=== PATIENT | female | born 1955 | race Hispanic/Latino ===

== ENCOUNTER 2022-02-12 20:45 | Inpatient (IN) | payer OTHER ==
[~2022-02-12] VITALS: Ht 152.4 cm; Wt 73.3 kg
[2022-02-12] MEDS ORDERED: MORPHINE 4 MG SYG ONE (21:12)
[2022-02-12] MEDS ORDERED: ONDANSETRON 4MG INJ ONE (21:12)
[2022-02-12 21:26] LABS: BASOPHILS % (AUTO) 0.2 % (0.0-5.0); EOSINOPHILS % (AUTO) 0.4 % (0.0-8.0); HEMATOCRIT 48.4 % (36-48); LYMPHOCYTES % (AUTO) 13.7 % (21.0-51.0); MEAN CORPUSCULAR HEMOGLOBIN 30.9 pg (27.0-33.0); MEAN CORPUSCULAR HGB CONC 33.5 g/dL (32.0-36.0); MEAN CORPUSCULAR VOLUME 92.2 fL (79-99); MONOCYTES % (AUTO) 3.9 % (3.0-13.0); NEUTROPHILS % (AUTO) 81.2 % (40.0-77.0); PLATELET COUNT (AUTO) 407 K/uL (130-400); RED BLOOD CELL COUNT(AUTO) 5.25 MIL/uL (4.00-5.50); RED CELL DISTRIBUTION WIDTH 12.9 % (11.0-15.5); WHITE BLOOD COUNT (AUTO) 24.8 K/uL (4.8-10.8)
[2022-02-12] MEDS ORDERED: MORPHINE 4 MG SYG IVP ONE (21:30)
[2022-02-12] MEDS ORDERED: ONDANSETRON 4MG INJ IVP ONE (21:30)
[2022-02-12 21:35] LABS: CREATININE 1.1 mg/dL (0.5-1.5); POTASSIUM 3.2 mmol/L (3.5-5.1)
[2022-02-12 21:40] LABS: ALBUMIN 4.1 g/dL (3.5-5.0); TOTAL PROTEIN, SERUM 7.8 g/dL (6.0-8.3)
[2022-02-12] MEDS ORDERED: ZOSYN 3.375GM +NS 50ML IV SCH (22:00)
[2022-02-12] MEDS ORDERED: HYDROMORPHONE 0.5 MG SYG (0.5MG/0.5ML) ONE (22:08)
[2022-02-12] MEDS ORDERED: 0.9%NACL 1000ML 1,365 ML IV ONE (22:30)
[2022-02-12] MEDS ORDERED: HYDROMORPHONE 0.5 MG SYG (0.5MG/0.5ML) IVP ONE ×2 (22:30)
[2022-02-12] MEDS: ZOSYN 3.375GM +NS 50ML IV SCH (22:58)
[2022-02-12] MEDS: DEXTROSE 5 %-0.45 % NACL 1,000 ML IV SCH (23:37)
[2022-02-12 23:47] LABS: CHOLESTEROL 281 mg/dL (<200); HDL CHOLESTEROL 45 mg/dL (35-85); LDL DIRECT 181 mg/dL (0-99); TRIGLYCERIDES 163 mg/dL (30-200)
[2022-02-13] VITALS (7 sets, daily range): BP systolic 123–164; BP diastolic 76–92
[2022-02-13] MEDS: HYDROMORPHONE 0.5 MG SYG (0.5MG/0.5ML) IVP PRN ×6 (00:52→21:10)
[2022-02-13] MEDS: ONDANSETRON 4MG INJ IVP PRN ×2 (02:19→05:48)
[2022-02-13] MEDS: LIDOCAINE HCL-MPF 1% 2ML VIAL IV PRN (02:20)
[2022-02-13] MEDS: POTASSIUM CHLORIDE 20MEQ/100ML 100 ML IV PRN (02:21)
[2022-02-13] MEDS ORDERED: [UNRECOGNIZED DRUG - OTHER] IV ONE (03:00)
[2022-02-13] MEDS ORDERED: PHARMACY COMMUNICATION MISC SCH (03:00)
[2022-02-13] MEDS ORDERED: 0.9%NACL 1000ML 1,365 ML IV ONE (03:00)
[2022-02-13] MEDS: DEXTROSE 5 %-0.45 % NACL 1,000 ML IV SCH ×2 (05:10→15:20)
[2022-02-13] MEDS: ZOSYN 3.375GM +NS 50ML IV SCH ×3 (05:41→23:22)
[2022-02-13 06:24] LABS: BASOPHILS % (AUTO) 0.1 % (0.0-5.0); HEMATOCRIT 43.9 % (36-48); LYMPHOCYTES % (AUTO) 6.2 % (21.0-51.0); MEAN CORPUSCULAR HEMOGLOBIN 31.1 pg (27.0-33.0); MEAN CORPUSCULAR HGB CONC 33.5 g/dL (32.0-36.0); MEAN CORPUSCULAR VOLUME 92.8 fL (79-99); MONOCYTES % (AUTO) 5.2 % (3.0-13.0); NEUTROPHILS % (AUTO) 88.2 % (40.0-77.0); PLATELET COUNT (AUTO) 245 K/uL (130-400); RED BLOOD CELL COUNT(AUTO) 4.73 MIL/uL (4.00-5.50); RED CELL DISTRIBUTION WIDTH 13.2 % (11.0-15.5); WHITE BLOOD COUNT (AUTO) 11.9 K/uL (4.8-10.8)
[2022-02-13 06:42] LABS: CREATININE 0.9 mg/dL (0.5-1.5); POTASSIUM 4.3 mmol/L (3.5-5.1); TOTAL PROTEIN, SERUM 6.5 g/dL (6.0-8.3)
[2022-02-13] MEDS ORDERED: GLUCAGON 1MG KIT 1 MG ML IM PRN (07:00)
[2022-02-13] MEDS ORDERED: DEXTROSE 50%-WATER 50 ML DISP.SYRIN IV PRN (07:00)
[2022-02-13] MEDS: INSULIN HUMULIN R 100 UNIT/ML 3ML SQ SCH ×4 (07:43→20:58)
[2022-02-13] MEDS: PANTOPRAZOLE 40 MG/VIAL IVP SCH (09:57)
[2022-02-13] MEDS ORDERED: PNEUMOCOCCAL VACCINE POLYVALENT 0.5 ML/VIAL [PPV] IM ONE (10:00)
[2022-02-13] MEDS: KETOROLAC 30MG VIAL (30MG/ML) IVP PRN ×2 (10:03→18:01)
[2022-02-13] MEDS: 0.9%NACL 1000ML 1,000 ML IV SCH (16:58)
[2022-02-13] MEDS: METOPROLOL TARTRATE 25 MG TAB PO SCH ×2 (16:58→20:59)
[2022-02-14] MEDS: 0.9%NACL 1000ML 1,000 ML IV SCH ×4 (02:33→21:57)
[2022-02-14] MEDS: KETOROLAC 30MG VIAL (30MG/ML) IVP PRN ×2 (02:56→09:00)
[2022-02-14 04:32] VITALS: BP 141/74
[2022-02-14] MEDS: INSULIN HUMULIN R 100 UNIT/ML 3ML SQ SCH ×4 (06:12→21:41)
[2022-02-14] MEDS: ZOSYN 3.375GM +NS 50ML IV SCH ×3 (06:37→21:40)
[2022-02-14] MEDS: HYDROMORPHONE 0.5 MG SYG (0.5MG/0.5ML) IVP PRN ×3 (07:12→21:40)
[2022-02-14 08:00] VITALS: BP 131/59
[2022-02-14] MEDS: PANTOPRAZOLE 40 MG/VIAL IVP SCH (09:00)
[2022-02-14] MEDS: METOPROLOL TARTRATE 25 MG TAB PO SCH ×2 (09:00→21:40)
[2022-02-14 12:00] VITALS: BP 115/62
[2022-02-14] MEDS: FLUTICASONE/VILANTEROL 1 EACH AER.POW.BA IH SCH (13:01)
[2022-02-14 16:00] VITALS: BP 109/52
[2022-02-14 20:52] VITALS: BP 139/56
[2022-02-14 23:15] VITALS: BP 117/65
[2022-02-15] MEDS: ONDANSETRON 4MG INJ IVP PRN (03:07)
[2022-02-15 04:30] VITALS: BP 126/64
[2022-02-15 05:13] LABS: BASOPHILS % (AUTO) 0.2 % (0.0-5.0); EOSINOPHILS % (AUTO) 0.1 % (0.0-8.0); HEMATOCRIT 36.4 % (36-48); LYMPHOCYTES % (AUTO) 9.1 % (21.0-51.0); MEAN CORPUSCULAR HEMOGLOBIN 30.5 pg (27.0-33.0); MEAN CORPUSCULAR HGB CONC 32.7 g/dL (32.0-36.0); MEAN CORPUSCULAR VOLUME 93.3 fL (79-99); MONOCYTES % (AUTO) 3.7 % (3.0-13.0); NEUTROPHILS % (AUTO) 86.1 % (40.0-77.0); PLATELET COUNT (AUTO) 205 K/uL (130-400); RED CELL DISTRIBUTION WIDTH 13.5 % (11.0-15.5); WHITE BLOOD COUNT (AUTO) 16.7 K/uL (4.8-10.8)
[2022-02-15 05:21] LABS: HEMOGLOBIN A1C 6.6 % (4.0-6.0)
[2022-02-15 05:32] LABS: ALBUMIN 2.3 g/dL (3.5-5.0); CREATININE 0.8 mg/dL (0.5-1.5); MAGNESIUM 2.1 mg/dL (1.80-2.40); POTASSIUM 3.4 mmol/L (3.5-5.1); TOTAL PROTEIN, SERUM 5.9 g/dL (6.0-8.3)
[2022-02-15] MEDS: ZOSYN 3.375GM +NS 50ML IV SCH ×3 (05:48→19:59)
[2022-02-15] MEDS: POTASSIUM CHLORIDE 20MEQ/100ML 100 ML IV PRN (05:48)
[2022-02-15] MEDS: HYDROMORPHONE 0.5 MG SYG (0.5MG/0.5ML) IVP PRN ×3 (06:05→15:33)
[2022-02-15] MEDS: INSULIN HUMULIN R 100 UNIT/ML 3ML SQ SCH ×4 (07:30→21:00)
[2022-02-15 08:00] VITALS: BP 111/57
[2022-02-15] MEDS: MONTELUKAST SODIUM 10 MG TAB PO SCH (09:52)
[2022-02-15] MEDS: METOPROLOL TARTRATE 25 MG TAB PO SCH ×2 (09:52→19:59)
[2022-02-15] MEDS: 0.9%NACL 1000ML 1,000 ML IV SCH ×2 (09:52→17:00)
[2022-02-15] MEDS: FLUTICASONE/VILANTEROL 1 EACH AER.POW.BA IH SCH (09:52)
[2022-02-15] MEDS: PANTOPRAZOLE 40 MG/VIAL IVP SCH (09:52)
[2022-02-15 12:00] VITALS: BP 111/62
[2022-02-15 16:00] VITALS: BP 121/66
[2022-02-15] MEDS: KETOROLAC 30MG VIAL (30MG/ML) IVP PRN (19:59)
[2022-02-15 20:00] VITALS: BP 149/75
[2022-02-16] VITALS: BP 142/76
[2022-02-16] MEDS: 0.9%NACL 1000ML 1,000 ML IV SCH (00:44)
[2022-02-16] MEDS: HYDROMORPHONE 0.5 MG SYG (0.5MG/0.5ML) IVP PRN ×5 (00:44→21:28)
[2022-02-16 04:00] VITALS: BP 130/72
[2022-02-16] MEDS: ZOSYN 3.375GM +NS 50ML IV SCH ×3 (04:38→22:42)
[2022-02-16 04:47] LABS: BASOPHILS % (AUTO) 0.3 % (0.0-5.0); HEMATOCRIT 31.5 % (36-48); LYMPHOCYTES % (AUTO) 11.7 % (21.0-51.0); MEAN CORPUSCULAR HEMOGLOBIN 31.1 pg (27.0-33.0); MEAN CORPUSCULAR HGB CONC 33.7 g/dL (32.0-36.0); MEAN CORPUSCULAR VOLUME 92.4 fL (79-99); MONOCYTES % (AUTO) 5.8 % (3.0-13.0); NEUTROPHILS % (AUTO) 80.4 % (40.0-77.0); PLATELET COUNT (AUTO) 177 K/uL (130-400); RED BLOOD CELL COUNT(AUTO) 3.41 MIL/uL (4.00-5.50); RED CELL DISTRIBUTION WIDTH 13.3 % (11.0-15.5); WHITE BLOOD COUNT (AUTO) 14.4 K/uL (4.8-10.8)
[2022-02-16] MEDS: INSULIN HUMULIN R 100 UNIT/ML 3ML SQ SCH ×4 (06:18→21:00)
[2022-02-16 07:15] VITALS: BP 119/63
[2022-02-16] MEDS: METOPROLOL TARTRATE 25 MG TAB PO SCH ×2 (09:20→20:08)
[2022-02-16] MEDS: PANTOPRAZOLE 40 MG/VIAL IVP SCH (09:20)
[2022-02-16] MEDS: MONTELUKAST SODIUM 10 MG TAB PO SCH (09:20)
[2022-02-16] MEDS: FLUTICASONE/VILANTEROL 1 EACH AER.POW.BA IH SCH (09:27)
[2022-02-16] MEDS: ONDANSETRON 4MG INJ IVP PRN (09:29)
[2022-02-16 11:15] VITALS: BP 124/64
[2022-02-16] MEDS: KETOROLAC 30MG VIAL (30MG/ML) IVP PRN (14:50)
[2022-02-16 15:15] VITALS: BP 124/61
[2022-02-16] MEDS ORDERED: IOHEXOL 350 MG/ML 100ML INFUS..BTL IV ONE (15:43)
[2022-02-16] MEDS: DEXTROSE 5 %-0.45 % NACL 1,000 ML IV SCH (16:43)
[2022-02-16] MEDS: POTASSIUM CHLORIDE 20MEQ/100ML 100 ML IV PRN (19:24)
[2022-02-16] MEDS: DOCUSATE SODIUM 100 MG CAP PO SCH (19:31)
[2022-02-16] MEDS: SENNOSIDES 8.6 MG TABLET PO SCH (19:31)
[2022-02-16 20:00] VITALS: BP 137/68
[2022-02-16] MEDS: METOPROLOL TARTRATE 1 MG/ML 5ML VIAL IV PRN (20:09)
[2022-02-17] VITALS (7 sets, daily range): BP systolic 117–153; BP diastolic 56–71
[2022-02-17] MEDS: KETOROLAC 30MG VIAL (30MG/ML) IVP PRN ×3 (00:29→16:30)
[2022-02-17] MEDS: HYDROMORPHONE 0.5 MG SYG (0.5MG/0.5ML) IVP PRN ×5 (01:07→21:01)
[2022-02-17] MEDS ORDERED: HYDROMORPHONE 0.5 MG SYG (0.5MG/0.5ML) IVP ONE (04:00)
[2022-02-17 04:27] LABS: BASOPHILS % (AUTO) 0.3 % (0.0-5.0); EOSINOPHILS % (AUTO) 1.1 % (0.0-8.0); HEMATOCRIT 28.4 % (36-48); LYMPHOCYTES % (AUTO) 10.3 % (21.0-51.0); MEAN CORPUSCULAR HEMOGLOBIN 31.2 pg (27.0-33.0); MEAN CORPUSCULAR HGB CONC 34.2 g/dL (32.0-36.0); MEAN CORPUSCULAR VOLUME 91.3 fL (79-99); MONOCYTES % (AUTO) 6.6 % (3.0-13.0); NUCLEATED RED BLOOD CELLS 0.4 % (0.0-0.19); PLATELET COUNT (AUTO) 198 K/uL (130-400); RED BLOOD CELL COUNT(AUTO) 3.11 MIL/uL (4.00-5.50); RED CELL DISTRIBUTION WIDTH 13.1 % (11.0-15.5); WHITE BLOOD COUNT (AUTO) 15.4 K/uL (4.8-10.8)
[2022-02-17 04:43] LABS: ALBUMIN 1.8 g/dL (3.5-5.0); CREATININE 0.6 mg/dL (0.5-1.5); MAGNESIUM 1.9 mg/dL (1.80-2.40); TOTAL PROTEIN, SERUM 5.6 g/dL (6.0-8.3)
[2022-02-17 04:49] LABS: CRP QUANTITATIVE 351.4 mg/L (0.00-9.0)
[2022-02-17 04:50] LABS: POTASSIUM 2.7 mmol/L (3.5-5.1)
[2022-02-17] MEDS: POTASSIUM CHLORIDE 20MEQ/100ML 100 ML IV PRN ×2 (05:03→09:33)
[2022-02-17] MEDS: LIDOCAINE HCL-MPF 1% 2ML VIAL IV PRN ×2 (05:03→09:34)
[2022-02-17] MEDS: ZOSYN 3.375GM +NS 50ML IV SCH ×3 (05:38→22:28)
[2022-02-17] MEDS: INSULIN HUMULIN R 100 UNIT/ML 3ML SQ SCH ×4 (05:58→20:21)
[2022-02-17] MEDS: DOCUSATE SODIUM 100 MG CAP PO SCH ×2 (09:00→19:44)
[2022-02-17] MEDS: MONTELUKAST SODIUM 10 MG TAB PO SCH ×2 (09:00→09:30)
[2022-02-17] MEDS: METOPROLOL TARTRATE 25 MG TAB PO SCH ×2 (09:00→19:44)
[2022-02-17] MEDS: SENNOSIDES 8.6 MG TABLET PO SCH ×2 (09:00→19:44)
[2022-02-17] MEDS: PANTOPRAZOLE 40 MG/VIAL IVP SCH (09:19)
[2022-02-17] MEDS: METOPROLOL TARTRATE 1 MG/ML 5ML VIAL IV PRN (09:21)
[2022-02-17] MEDS: ONDANSETRON 4MG INJ IVP PRN (09:26)
[2022-02-17] MEDS: FLUTICASONE/VILANTEROL 1 EACH AER.POW.BA IH SCH (09:35)
[2022-02-17] MEDS: DEXTROSE 5 %-0.45 % NACL 1,000 ML IV SCH (13:20)
[2022-02-18] MEDS: KETOROLAC 30MG VIAL (30MG/ML) IVP PRN (01:09)
[2022-02-18] MEDS ORDERED: HYDROMORPHONE 0.5 MG SYG (0.5MG/0.5ML) ONE (03:00)
[2022-02-18 04:51] VITALS: BP 124/67
[2022-02-18] MEDS: ZOSYN 3.375GM +NS 50ML IV SCH ×3 (05:45→22:19)
[2022-02-18] MEDS: INSULIN HUMULIN R 100 UNIT/ML 3ML SQ SCH ×3 (06:06→20:32)
[2022-02-18 08:00] VITALS: BP 146/70
[2022-02-18] MEDS: SENNOSIDES 8.6 MG TABLET PO SCH ×2 (08:36→20:41)
[2022-02-18] MEDS: DOCUSATE SODIUM 100 MG CAP PO SCH ×2 (08:36→20:40)
[2022-02-18] MEDS: METOPROLOL TARTRATE 25 MG TAB PO SCH ×2 (08:36→20:40)
[2022-02-18] MEDS: MONTELUKAST SODIUM 10 MG TAB PO SCH (08:37)
[2022-02-18 08:49] LABS: BASOPHILS % (AUTO) 0.4 % (0.0-5.0); EOSINOPHILS % (AUTO) 1.2 % (0.0-8.0); HEMATOCRIT 31.1 % (36-48); LYMPHOCYTES % (AUTO) 7.3 % (21.0-51.0); MEAN CORPUSCULAR HEMOGLOBIN 30.8 pg (27.0-33.0); MEAN CORPUSCULAR HGB CONC 34.4 g/dL (32.0-36.0); MEAN CORPUSCULAR VOLUME 89.6 fL (79-99); MONOCYTES % (AUTO) 7.5 % (3.0-13.0); NEUTROPHILS % (AUTO) 79.3 % (40.0-77.0); NUCLEATED RED BLOOD CELLS 0.8 % (0.0-0.19); PLATELET COUNT (AUTO) 200 K/uL (130-400); RED BLOOD CELL COUNT(AUTO) 3.47 MIL/uL (4.00-5.50); WHITE BLOOD COUNT (AUTO) 13.9 K/uL (4.8-10.8)
[2022-02-18] MEDS: HYDROMORPHONE 0.5 MG SYG (0.5MG/0.5ML) IVP PRN ×4 (09:01→23:31)
[2022-02-18] MEDS: DEXTROSE 5 %-0.45 % NACL 1,000 ML IV SCH (09:01)
[2022-02-18] MEDS: PANTOPRAZOLE 40 MG/VIAL IVP SCH (09:02)
[2022-02-18] MEDS: FLUTICASONE/VILANTEROL 1 EACH AER.POW.BA IH SCH (09:02)
[2022-02-18] MEDS: METOPROLOL TARTRATE 1 MG/ML 5ML VIAL IV PRN (09:03)
[2022-02-18 09:16] LABS: ALBUMIN 1.8 g/dL (3.5-5.0); CREATININE 0.6 mg/dL (0.5-1.5); MAGNESIUM 1.8 mg/dL (1.80-2.40)
[2022-02-18 09:23] LABS: POTASSIUM 2.5 mmol/L (3.5-5.1)
[2022-02-18 12:00] VITALS: BP 146/65
[2022-02-18] MEDS: ONDANSETRON 4MG INJ IVP PRN (12:53)
[2022-02-18 16:00] VITALS: BP 152/67
[2022-02-18] MEDS ORDERED: POTASSIUM CHLORIDE 20MEQ/10ML 20 MEQ in DEXTROSE 5 %-0.45 % NACL 1,000 ML IV SCH (16:30)
[2022-02-18 16:55] LABS: CREATININE 0.6 mg/dL (0.5-1.5); MAGNESIUM 1.8 mg/dL (1.80-2.40)
[2022-02-18 17:01] LABS: POTASSIUM 2.6 mmol/L (3.5-5.1)
[2022-02-18] MEDS ORDERED: KCL 20 MEQ ERTAB PO ONE (18:30)
[2022-02-18 20:11] VITALS: BP 146/70
[2022-02-18] MEDS ORDERED: POTASSIUM CHLORIDE 10% ELIXIR 20 MEQ/15 ML UDCUP ONE (20:36)
[2022-02-18 23:17] VITALS: BP 138/72
[2022-02-19 03:10] VITALS: BP 141/72
[2022-02-19] MEDS: ONDANSETRON 4MG INJ IVP PRN (03:12)
[2022-02-19 04:06] LABS: BASOPHILS % (AUTO) 0.5 % (0.0-5.0); EOSINOPHILS % (AUTO) 1.1 % (0.0-8.0); HEMATOCRIT 30.8 % (36-48); LYMPHOCYTES % (AUTO) 8.3 % (21.0-51.0); MEAN CORPUSCULAR HEMOGLOBIN 30.8 pg (27.0-33.0); MEAN CORPUSCULAR HGB CONC 34.7 g/dL (32.0-36.0); MEAN CORPUSCULAR VOLUME 88.8 fL (79-99); MONOCYTES % (AUTO) 7.3 % (3.0-13.0); NEUTROPHILS % (AUTO) 77.9 % (40.0-77.0); PLATELET COUNT (AUTO) 216 K/uL (130-400); RED BLOOD CELL COUNT(AUTO) 3.47 MIL/uL (4.00-5.50); RED CELL DISTRIBUTION WIDTH 12.8 % (11.0-15.5)
[2022-02-19] MEDS: HYDROMORPHONE 0.5 MG SYG (0.5MG/0.5ML) IVP PRN ×3 (04:06→19:23)
[2022-02-19 04:40] LABS: ALBUMIN 1.7 g/dL (3.5-5.0); CREATININE 0.6 mg/dL (0.5-1.5); TOTAL PROTEIN, SERUM 5.9 g/dL (6.0-8.3)
[2022-02-19 04:53] LABS: CRP QUANTITATIVE 248.3 mg/L (0.00-9.0)
[2022-02-19] MEDS ORDERED: POTASSIUM BICARB/CIT AC 25 MEQ TABLET.EFF ONE (05:01)
[2022-02-19] MEDS: ZOSYN 3.375GM +NS 50ML IV SCH ×3 (05:46→22:32)
[2022-02-19] MEDS ORDERED: POTASSIUM BICARB/CIT AC 25 MEQ TABLET.EFF PO ONE (06:00)
[2022-02-19] MEDS: INSULIN HUMULIN R 100 UNIT/ML 3ML SQ SCH ×3 (06:04→20:38)
[2022-02-19 08:22] VITALS: BP 138/67
[2022-02-19] MEDS: DOCUSATE SODIUM 100 MG CAP PO SCH (09:06)
[2022-02-19] MEDS: METOPROLOL TARTRATE 25 MG TAB PO SCH ×2 (09:06→20:36)
[2022-02-19] MEDS: SENNOSIDES 8.6 MG TABLET PO SCH (09:06)
[2022-02-19] MEDS: PANTOPRAZOLE 40 MG/VIAL IVP SCH (09:06)
[2022-02-19] MEDS: MONTELUKAST SODIUM 10 MG TAB PO SCH (09:06)
[2022-02-19] MEDS: FLUTICASONE/VILANTEROL 1 EACH AER.POW.BA IH SCH (09:16)
[2022-02-19] MEDS: 0.9%NACL 1000ML 1,000 ML IV SCH ×2 (09:37→22:32)
[2022-02-19 11:16] VITALS: BP 127/56
[2022-02-19 12:11] LABS: CREATININE 0.6 mg/dL (0.5-1.5); POTASSIUM 3.6 mmol/L (3.5-5.1)
[2022-02-19 16:26] VITALS: BP 132/67
[2022-02-19 20:00] VITALS: BP 140/68
[2022-02-20] MEDS: HYDROMORPHONE 0.5 MG SYG (0.5MG/0.5ML) IVP PRN ×2 (00:13→04:46)
[2022-02-20 00:36] VITALS: BP 139/71
[2022-02-20 03:55] VITALS: BP 136/65
[2022-02-20] MEDS: INSULIN HUMULIN R 100 UNIT/ML 3ML SQ SCH ×4 (06:02→21:36)
[2022-02-20] MEDS: ZOSYN 3.375GM +NS 50ML IV SCH (06:03)
[2022-02-20 07:30] VITALS: BP 131/67
[2022-02-20] MEDS: METOPROLOL TARTRATE 25 MG TAB PO SCH ×2 (09:14→20:26)
[2022-02-20] MEDS: PANTOPRAZOLE 40 MG/VIAL IVP SCH (09:14)
[2022-02-20] MEDS: MONTELUKAST SODIUM 10 MG TAB PO SCH (09:14)
[2022-02-20] MEDS: FLUTICASONE/VILANTEROL 1 EACH AER.POW.BA IH SCH (09:16)
[2022-02-20 11:00] VITALS: BP 135/71
[2022-02-20] MEDS: AMOXICILLIN 500 MG CAPSULE PO SCH ×2 (11:57→23:18)
[2022-02-20] MEDS: KETOROLAC 15MG/ML VIAL (15MG/ML) IV PRN ×2 (11:58→20:27)
[2022-02-20] MEDS ORDERED: TRAMADOL HCL 50 MG TABLET PO PRN (15:30)
[2022-02-20 16:00] VITALS: BP 116/71
[2022-02-20] MEDS: ONDANSETRON 4MG INJ IVP PRN (18:46)
[2022-02-20 20:00] VITALS: BP 144/68
[2022-02-20] MEDS: 0.9%NACL 1000ML 1,000 ML IV SCH (21:34)
[2022-02-21] VITALS: BP 132/67
[2022-02-21] MEDS: 0.9%NACL 1000ML 1,000 ML IV SCH (00:38)
[2022-02-21] MEDS: ONDANSETRON 4MG INJ IVP PRN (02:27)
[2022-02-21 04:00] VITALS: BP 137/74
[2022-02-21] MEDS: INSULIN HUMULIN R 100 UNIT/ML 3ML SQ SCH (05:20)
[2022-02-21] MEDS: KETOROLAC 15MG/ML VIAL (15MG/ML) IV PRN (06:21)
[2022-02-21 07:58] VITALS: BP 131/61
[2022-02-21] MEDS: METOPROLOL TARTRATE 25 MG TAB PO SCH (08:13)
[2022-02-21] MEDS: MONTELUKAST SODIUM 10 MG TAB PO SCH (08:13)
[2022-02-21] MEDS: PANTOPRAZOLE 40 MG/VIAL IVP SCH (08:13)
[2022-02-21] MEDS: AMOXICILLIN 500 MG CAPSULE PO SCH (08:13)
[2022-02-21 11:48] VITALS: BP 117/68
[2022-02-21] MEDS ORDERED: AMOX-426 PO (15:14)
== END 2022-02-21 12:30 | disposition home or self-care (01) | DRG 871 ==
LOC: EDH 20:45 → EDHIP 20:46 → 4CH 02-13 00:57
PROVIDERS: ADMIT Hospitalist; ATTEND Hospitalist
DX: A41.9 Sepsis, unspecified organism (principal); E43 Unspecified severe protein-calorie malnutrition; K85.90 Acute pancreatitis without necrosis or infection, unspecified; J18.9 Pneumonia, unspecified organism; E87.6 Hypokalemia; E66.9 Obesity, unspecified; J45.909 Unspecified asthma, uncomplicated; Z90.710 Acquired absence of both cervix and uterus; Z68.31 Body mass index [BMI] 31.0-31.9, adult
CPT/HCPCS: 36415; 71045; 74160; 74176; 80048; 80053; 80061; 82948; 83036; 83605; 83690; 83735; 84145; 84484; 85025; 86140; 87040; 90732; 93005; 97039; 99291; C9113; G0378; J1170; J1815; J1885; J2270; J2405; J2543; J3480; J3490; J7030; J7042; Q9967

== ENCOUNTER 2022-02-24 21:56 | Inpatient (IN) | payer OTHER ==
[~2022-02-24] VITALS: Ht 152.4 cm; Wt 62.6 kg
[~2022-02-24 21:56] MED LIST: AMOX-426 PO
[2022-02-24] MEDS ORDERED: KETOROLAC 15MG/ML VIAL (15MG/ML) IV ONE (22:30)
[2022-02-24] MEDS ORDERED: ONDANSETRON 4MG INJ IVP ONE (22:30)
[2022-02-24] MEDS ORDERED: MORPHINE 4 MG SYG IVP ONE (22:30)
[2022-02-24] MEDS ORDERED: 0.9%NACL 1000ML 1,000 ML IV ONE (22:30)
[2022-02-24 22:36] LABS: BASOPHILS % (AUTO) 0.4 % (0.0-5.0); HEMATOCRIT 34.7 % (36-48); LYMPHOCYTES % (AUTO) 10.4 % (21.0-51.0); MEAN CORPUSCULAR HEMOGLOBIN 30.6 pg (27.0-33.0); MEAN CORPUSCULAR HGB CONC 34.3 g/dL (32.0-36.0); MEAN CORPUSCULAR VOLUME 89.2 fL (79-99); MONOCYTES % (AUTO) 6.4 % (3.0-13.0); NEUTROPHILS % (AUTO) 80.6 % (40.0-77.0); RED BLOOD CELL COUNT(AUTO) 3.89 MIL/uL (4.00-5.50); RED CELL DISTRIBUTION WIDTH 13.4 % (11.0-15.5); WHITE BLOOD COUNT (AUTO) 15.7 K/uL (4.8-10.8)
[2022-02-24 22:48] LABS: CREATININE 0.6 mg/dL (0.5-1.5); POTASSIUM 3.4 mmol/L (3.5-5.1)
[2022-02-24 22:52] LABS: ALBUMIN 2.4 g/dL (3.5-5.0); TOTAL PROTEIN, SERUM 7.6 g/dL (6.0-8.3)
[2022-02-24 23:14] LABS: PLATELET COUNT (AUTO) 830 K/uL (130-400); PLATELET MORPHOLOGY COMMENT INCREASED
[2022-02-25] MEDS ORDERED: MORPHINE 2 MG SYG IVP ONE (00:30)
[2022-02-25] MEDS ORDERED: KCL 20 MEQ ERTAB PO ONE (01:00)
[2022-02-25] MEDS ORDERED: NITROGLYCERIN 0.4 MG SL TAB SL PRN (01:00)
[2022-02-25] MEDS ORDERED: ACETAMINOPHEN 325 MG TAB PO PRN ×2 (01:00)
[2022-02-25 01:09] LABS: MAGNESIUM 2.1 mg/dL (1.80-2.40)
[2022-02-25 01:10] LABS: HEMOGLOBIN A1C 7.3 % (4.0-6.0)
[2022-02-25] MEDS: LACTATED RINGERS 1000ML 1,000 ML IV SCH ×3 (01:14→19:38)
[2022-02-25] MEDS: ZOSYN 3.375GM +NS 50ML IV SCH ×3 (01:14→17:48)
[2022-02-25] MEDS ORDERED: GLUCAGON 1MG KIT 1 MG ML IM PRN (01:30)
[2022-02-25] MEDS ORDERED: DEXTROSE 50%-WATER 50 ML DISP.SYRIN IV PRN (01:30)
[2022-02-25] MEDS: FAMOTIDINE 20MG VIAL IV SCH ×3 (02:36→21:19)
[2022-02-25 03:09] LABS: ALBUMIN 2.1 g/dL (3.5-5.0); CREATININE 0.6 mg/dL (0.5-1.5); MAGNESIUM 1.9 mg/dL (1.80-2.40); POTASSIUM 3.5 mmol/L (3.5-5.1); TOTAL PROTEIN, SERUM 6.9 g/dL (6.0-8.3)
[2022-02-25 03:12] LABS: BASOPHILS % (AUTO) 0.2 % (0.0-5.0); EOSINOPHILS % (AUTO) 1.8 % (0.0-8.0); HEMATOCRIT 32.2 % (36-48); MEAN CORPUSCULAR HEMOGLOBIN 30.8 pg (27.0-33.0); MEAN CORPUSCULAR HGB CONC 33.9 g/dL (32.0-36.0); MONOCYTES % (AUTO) 6.9 % (3.0-13.0); NEUTROPHILS % (AUTO) 76.1 % (40.0-77.0); PLATELET COUNT (AUTO) 668 K/uL (130-400); RED BLOOD CELL COUNT(AUTO) 3.54 MIL/uL (4.00-5.50); RED CELL DISTRIBUTION WIDTH 13.5 % (11.0-15.5); WHITE BLOOD COUNT (AUTO) 13.6 K/uL (4.8-10.8)
[2022-02-25 04:18] LABS: APPEARANCE,URINE CLEAR (CLEAR); BILIRUBIN,URINE NEGATIVE (NEGATIVE); COLOR,URINE YELLOW (YELLOW); GLUCOSE, URINE (UA) 500 mg/dL (NEGATIVE); KETONES,URINE >=80 mg/dL (NEGATIVE); LEUKOCYTE ESTERASE ,URINE NEGATIVE (NEGATIVE); NITRATE,URINE NEGATIVE (NEGATIVE); OCCULT BLOOD,URINE NEGATIVE (NEGATIVE); PROTEIN,URINE TRACE mg/dL (NEGATIVE); UROBILINOGEN,URINE 0.2 mg/dL (0.2-1.0)
[2022-02-25 04:22] LABS: AMPHET/METH SCREEN,URINE NEGATIVE (NEGATIVE); BARBITURATE SCREEN, URINE NEGATIVE (NEGATIVE); BENZODIAZEPINES SCREEN,URINE NEGATIVE (NEGATIVE); CANNABINOID SCREEN,URINE NEGATIVE (NEGATIVE); COCAINE SCREEN,URINE NEGATIVE (NEGATIVE); PHENCYCLIDINE SCREEN,URINE NEGATIVE (NEGATIVE)
[2022-02-25 04:34] LABS: BACTERIA,URINE None Seen /HPF (None Seen); RBC,URINE None Seen /HPF (0-1); WBC,URINE None Seen /HPF (0-1)
[2022-02-25 04:35] VITALS: BP 110/68
[2022-02-25] MEDS: MORPHINE 2 MG SYG IV PRN ×3 (06:12→17:50)
[2022-02-25] MEDS: ONDANSETRON 4MG INJ IV PRN ×2 (06:12→18:08)
[2022-02-25 06:50] LABS: PROTHROMBIN TIME 10.9 SEC (9.6-11.6)
[2022-02-25 06:51] LABS: PARTIAL THROMBOPLASTIN TIME 26.5 SEC (26.3-35.5)
[2022-02-25] MEDS: INSULIN HUMULIN R 100 UNIT/ML 3ML SQ SCH ×4 (07:30→21:29)
[2022-02-25 08:00] VITALS: BP 150/79
[2022-02-25] MEDS ORDERED: FAMOTIDINE 20MG TAB PO SCH (09:00)
[2022-02-25] MEDS: ENOXAPARIN SODIUM 40 MG/0.4 ML SYRINGE SQ SCH (10:25)
[2022-02-25 12:00] VITALS: BP 120/72
[2022-02-25 16:26] VITALS: BP 148/70
[2022-02-25 20:00] VITALS: BP 142/72
[2022-02-26] VITALS (7 sets, daily range): BP systolic 127–139; BP diastolic 62–74
[2022-02-26] MEDS: ZOSYN 3.375GM +NS 50ML IV SCH ×3 (00:39→18:56)
[2022-02-26] MEDS: LACTATED RINGERS 1000ML 1,000 ML IV SCH ×3 (00:40→22:04)
[2022-02-26] MEDS: MORPHINE 2 MG SYG IV PRN ×3 (03:47→22:18)
[2022-02-26] MEDS: INSULIN HUMULIN R 100 UNIT/ML 3ML SQ SCH ×4 (06:30→21:00)
[2022-02-26 09:15] LABS: HEMATOCRIT 28.4 % (36-48); MEAN CORPUSCULAR HEMOGLOBIN 30.4 pg (27.0-33.0); MEAN CORPUSCULAR HGB CONC 33.5 g/dL (32.0-36.0); MEAN CORPUSCULAR VOLUME 90.7 fL (79-99); RED BLOOD CELL COUNT(AUTO) 3.13 MIL/uL (4.00-5.50); RED CELL DISTRIBUTION WIDTH 13.6 % (11.0-15.5); WHITE BLOOD COUNT (AUTO) 9.9 K/uL (4.8-10.8)
[2022-02-26 09:53] LABS: ALBUMIN 1.8 g/dL (3.5-5.0); CREATININE 0.5 mg/dL (0.5-1.5); POTASSIUM 3.2 mmol/L (3.5-5.1); TOTAL PROTEIN, SERUM 6.1 g/dL (6.0-8.3)
[2022-02-26] MEDS: FAMOTIDINE 20MG VIAL IV SCH ×2 (10:06→22:04)
[2022-02-26] MEDS: ENOXAPARIN SODIUM 40 MG/0.4 ML SYRINGE SQ SCH (10:07)
[2022-02-26] MEDS: ONDANSETRON 4MG INJ IV PRN ×2 (15:14→22:14)
[2022-02-27 03:38] VITALS: BP 133/70
[2022-02-27 04:35] LABS: BASOPHILS % (AUTO) 0.5 % (0.0-5.0); EOSINOPHILS % (AUTO) 2.8 % (0.0-8.0); HEMATOCRIT 29.3 % (36-48); MEAN CORPUSCULAR HEMOGLOBIN 30.1 pg (27.0-33.0); MEAN CORPUSCULAR HGB CONC 32.8 g/dL (32.0-36.0); MEAN CORPUSCULAR VOLUME 91.8 fL (79-99); MONOCYTES % (AUTO) 7.2 % (3.0-13.0); NEUTROPHILS % (AUTO) 73.8 % (40.0-77.0); PLATELET COUNT (AUTO) 594 K/uL (130-400); RED BLOOD CELL COUNT(AUTO) 3.19 MIL/uL (4.00-5.50); RED CELL DISTRIBUTION WIDTH 13.2 % (11.0-15.5); WHITE BLOOD COUNT (AUTO) 9.8 K/uL (4.8-10.8)
[2022-02-27] MEDS: LACTATED RINGERS 1000ML 1,000 ML IV SCH ×4 (04:47→20:59)
[2022-02-27] MEDS: ZOSYN 3.375GM +NS 50ML IV SCH ×3 (04:47→16:57)
[2022-02-27 04:49] LABS: CREATININE 0.5 mg/dL (0.5-1.5)
[2022-02-27] MEDS ORDERED: LIDOCAINE HCL-MPF 1% 2ML VIAL IV PRN (06:30)
[2022-02-27] MEDS: INSULIN HUMULIN R 100 UNIT/ML 3ML SQ SCH ×3 (07:03→16:30)
[2022-02-27 08:00] VITALS: BP 132/73
[2022-02-27] MEDS: FAMOTIDINE 20MG VIAL IV SCH ×2 (08:46→20:54)
[2022-02-27] MEDS: ENOXAPARIN SODIUM 40 MG/0.4 ML SYRINGE SQ SCH (08:50)
[2022-02-27 12:00] VITALS: BP 141/74
[2022-02-27] MEDS: ONDANSETRON 4MG INJ IV PRN (12:16)
[2022-02-27] MEDS ORDERED: LIDOCAINE HCL MPF 1% 5ML VIAL ONE (13:05)
[2022-02-27] MEDS: POTASSIUM CHLORIDE 20MEQ/100ML 100 ML IV PRN ×2 (13:13→20:54)
[2022-02-27 15:38] VITALS: BP 141/73
[2022-02-27 20:03] VITALS: BP 141/78
[2022-02-27] MEDS ORDERED: [UNRECOGNIZED DRUG - NUTRITION] IV SCH (20:30)
[2022-02-27] MEDS: MORPHINE 2 MG SYG IV PRN (20:58)
[2022-02-27] MEDS ORDERED: KETOROLAC 30MG VIAL (30MG/ML) ONE (23:54)
[2022-02-28] MEDS ORDERED: KETOROLAC 30MG VIAL (30MG/ML) IVP PRN
[2022-02-28 00:23] VITALS: BP 162/70
[2022-02-28] MEDS: ZOSYN 3.375GM +NS 50ML IV SCH ×3 (00:23→17:41)
[2022-02-28] MEDS: INSULIN HUMULIN R 100 UNIT/ML 3ML SQ SCH ×5 (00:24→22:36)
[2022-02-28] MEDS: MORPHINE 2 MG SYG IV PRN (04:47)
[2022-02-28] MEDS: LACTATED RINGERS 1000ML 1,000 ML IV SCH (04:47)
[2022-02-28 05:05] VITALS: BP 122/67
[2022-02-28 06:21] LABS: BASOPHILS % (AUTO) 0.5 % (0.0-5.0); EOSINOPHILS % (AUTO) 1.1 % (0.0-8.0); HEMATOCRIT 29.3 % (36-48); LYMPHOCYTES % (AUTO) 11.6 % (21.0-51.0); MEAN CORPUSCULAR HEMOGLOBIN 30.5 pg (27.0-33.0); MEAN CORPUSCULAR HGB CONC 33.8 g/dL (32.0-36.0); MEAN CORPUSCULAR VOLUME 90.2 fL (79-99); MONOCYTES % (AUTO) 5.8 % (3.0-13.0); NEUTROPHILS % (AUTO) 80.4 % (40.0-77.0); PLATELET COUNT (AUTO) 620 K/uL (130-400); RED BLOOD CELL COUNT(AUTO) 3.25 MIL/uL (4.00-5.50); RED CELL DISTRIBUTION WIDTH 13.1 % (11.0-15.5); WHITE BLOOD COUNT (AUTO) 11.4 K/uL (4.8-10.8)
[2022-02-28 06:29] LABS: INR 1.05 (0.85-1.15); PROTHROMBIN TIME 11.4 SEC (9.6-11.6)
[2022-02-28 06:30] LABS: PARTIAL THROMBOPLASTIN TIME 25.9 SEC (26.3-35.5)
[2022-02-28 06:40] LABS: ALBUMIN 1.9 g/dL (3.5-5.0); CREATININE 0.6 mg/dL (0.5-1.5); MAGNESIUM 1.6 mg/dL (1.80-2.40); POTASSIUM 3.8 mmol/L (3.5-5.1)
[2022-02-28 08:00] VITALS: BP 125/68
[2022-02-28] MEDS: FAMOTIDINE 20MG VIAL IV SCH ×2 (08:55→22:27)
[2022-02-28] MEDS: ENOXAPARIN SODIUM 40 MG/0.4 ML SYRINGE SQ SCH (09:00)
[2022-02-28 12:00] VITALS: BP 137/67
[2022-02-28] MEDS ORDERED: MAGNESIUM 2GM PREMIX 50ML 50 ML IV PRN (12:00)
[2022-02-28 16:00] VITALS: BP 136/71
[2022-02-28 20:00] VITALS: BP 123/77
[2022-03-01] VITALS (7 sets, daily range): BP systolic 120–140; BP diastolic 65–81
[2022-03-01] MEDS: MORPHINE 2 MG SYG IV PRN (00:59)
[2022-03-01] MEDS: ZOSYN 3.375GM +NS 50ML IV SCH ×3 (00:59→16:57)
[2022-03-01] MEDS: LACTATED RINGERS 1000ML 1,000 ML IV SCH ×2 (01:28→13:20)
[2022-03-01 05:55] LABS: BASOPHILS % (AUTO) 0.9 % (0.0-5.0); EOSINOPHILS % (AUTO) 2.5 % (0.0-8.0); HEMATOCRIT 34.1 % (36-48); LYMPHOCYTES % (AUTO) 13.7 % (21.0-51.0); MEAN CORPUSCULAR HEMOGLOBIN 30.3 pg (27.0-33.0); MEAN CORPUSCULAR HGB CONC 32.8 g/dL (32.0-36.0); MEAN CORPUSCULAR VOLUME 92.2 fL (79-99); NEUTROPHILS % (AUTO) 73.1 % (40.0-77.0); PLATELET COUNT (AUTO) 603 K/uL (130-400); RED CELL DISTRIBUTION WIDTH 13.2 % (11.0-15.5); WHITE BLOOD COUNT (AUTO) 9.7 K/uL (4.8-10.8)
[2022-03-01] MEDS: INSULIN HUMULIN R 100 UNIT/ML 3ML SQ SCH ×3 (06:05→18:00)
[2022-03-01 06:19] LABS: ALBUMIN 2.2 g/dL (3.5-5.0); CREATININE 0.5 mg/dL (0.5-1.5); MAGNESIUM 2.2 mg/dL (1.80-2.40); PHOSPHORUS 2.9 mg/dL (2.5-4.9); POTASSIUM 3.8 mmol/L (3.5-5.1); TOTAL PROTEIN, SERUM 6.9 g/dL (6.0-8.3)
[2022-03-01] MEDS: FAMOTIDINE 20MG VIAL IV SCH ×2 (09:41→21:45)
[2022-03-01] MEDS: ENOXAPARIN SODIUM 40 MG/0.4 ML SYRINGE SQ SCH (09:42)
[2022-03-01] MEDS ORDERED: FAT EMULSIONS 20% 250ML 250 ML IV SCH (10:00)
[2022-03-01] MEDS ORDERED: M.V.I. IV [ADULT] 10 ML, MULTITRACE-4 ADULT 10ML VIAL 3 ML in CLINIMIX-E4.25%AA/D5+LYT2... IV SCH ×2 (10:30→17:30)
[2022-03-02] MEDS: ZOSYN 3.375GM +NS 50ML IV SCH ×3 (00:21→17:32)
[2022-03-02] MEDS: INSULIN HUMULIN R 100 UNIT/ML 3ML SQ SCH ×4 (02:05→18:27)
[2022-03-02] MEDS: MORPHINE 2 MG SYG IV PRN (02:06)
[2022-03-02] MEDS: LACTATED RINGERS 1000ML 1,000 ML IV SCH (02:40)
[2022-03-02 04:23] VITALS: BP 121/72
[2022-03-02 05:33] LABS: HEMATOCRIT 34.2 % (36-48); MEAN CORPUSCULAR HEMOGLOBIN 30.2 pg (27.0-33.0); MEAN CORPUSCULAR HGB CONC 33.3 g/dL (32.0-36.0); MEAN CORPUSCULAR VOLUME 90.5 fL (79-99); RED BLOOD CELL COUNT(AUTO) 3.78 MIL/uL (4.00-5.50); RED CELL DISTRIBUTION WIDTH 13.2 % (11.0-15.5); WHITE BLOOD COUNT (AUTO) 9.6 K/uL (4.8-10.8)
[2022-03-02 05:44] LABS: CREATININE 0.7 mg/dL (0.5-1.5); POTASSIUM 4.2 mmol/L (3.5-5.1)
[2022-03-02 08:00] VITALS: BP 113/68
[2022-03-02] MEDS: FAMOTIDINE 20MG VIAL IV SCH ×2 (08:32→20:05)
[2022-03-02] MEDS: ENOXAPARIN SODIUM 40 MG/0.4 ML SYRINGE SQ SCH (08:32)
[2022-03-02] MEDS ORDERED: FAT EMULSIONS 20% 250ML 250 ML IV SCH (10:00)
[2022-03-02] MEDS ORDERED: M.V.I. IV [ADULT] 10 ML, MULTITRACE-4 ADULT 10ML VIAL 3 ML in CLINIMIX-E 5%AA /D15%W 2... IV SCH (10:30)
[2022-03-02 11:43] VITALS: BP 114/71
[2022-03-02 16:00] VITALS: BP 131/73
[2022-03-02] MEDS: ONDANSETRON 4MG INJ IV PRN (20:05)
[2022-03-02 20:33] VITALS: BP 128/68
[2022-03-03] MEDS: ZOSYN 3.375GM +NS 50ML IV SCH ×3 (00:30→17:59)
[2022-03-03] MEDS: INSULIN HUMULIN R 100 UNIT/ML 3ML SQ SCH ×4 (00:33→18:01)
[2022-03-03 00:57] VITALS: BP 111/70
[2022-03-03] MEDS: ONDANSETRON 4MG INJ IV PRN (01:10)
[2022-03-03 04:37] VITALS: BP 105/65
[2022-03-03 05:19] LABS: HEMATOCRIT 34.1 % (36-48); MEAN CORPUSCULAR HEMOGLOBIN 30.3 pg (27.0-33.0); MEAN CORPUSCULAR HGB CONC 33.4 g/dL (32.0-36.0); MEAN CORPUSCULAR VOLUME 90.7 fL (79-99); RED BLOOD CELL COUNT(AUTO) 3.76 MIL/uL (4.00-5.50); RED CELL DISTRIBUTION WIDTH 13.3 % (11.0-15.5); WHITE BLOOD COUNT (AUTO) 9.5 K/uL (4.8-10.8)
[2022-03-03 05:54] LABS: CREATININE 0.7 mg/dL (0.5-1.5); POTASSIUM 4.1 mmol/L (3.5-5.1)
[2022-03-03 07:45] VITALS: BP 99/66
[2022-03-03] MEDS: FAMOTIDINE 20MG VIAL IV SCH ×2 (08:31→21:05)
[2022-03-03] MEDS: ENOXAPARIN SODIUM 40 MG/0.4 ML SYRINGE SQ SCH (08:32)
[2022-03-03 11:00] VITALS: BP 107/64
[2022-03-03 16:00] VITALS: BP 105/65
[2022-03-03 19:58] VITALS: BP 102/60
[2022-03-03] MEDS ORDERED: [UNRECOGNIZED DRUG - OTHER] IV SCH (20:00)
[2022-03-03] MEDS ORDERED: MULTITRACE IV SCH (20:00)
[2022-03-03] MEDS ORDERED: CLINIMIX E IV SCH (20:00)
[2022-03-04 00:24] VITALS: BP 112/64
[2022-03-04] MEDS: INSULIN HUMULIN R 100 UNIT/ML 3ML SQ SCH ×6 (00:52→22:03)
[2022-03-04] MEDS: ZOSYN 3.375GM +NS 50ML IV SCH ×3 (00:58→16:39)
[2022-03-04 04:28] VITALS: BP 102/63
[2022-03-04 04:56] LABS: HEMATOCRIT 33.4 % (36-48); MEAN CORPUSCULAR HEMOGLOBIN 30.4 pg (27.0-33.0); MEAN CORPUSCULAR HGB CONC 32.9 g/dL (32.0-36.0); MEAN CORPUSCULAR VOLUME 92.3 fL (79-99); RED BLOOD CELL COUNT(AUTO) 3.62 MIL/uL (4.00-5.50); RED CELL DISTRIBUTION WIDTH 13.5 % (11.0-15.5); WHITE BLOOD COUNT (AUTO) 7.6 K/uL (4.8-10.8)
[2022-03-04 05:25] LABS: ALBUMIN 2.4 g/dL (3.5-5.0); BILIRUBIN,DIRECT 0.1 mg/dL (0.0-0.3); CREATININE 0.8 mg/dL (0.5-1.5); CRP QUANTITATIVE 34.7 mg/L (0.00-9.0); MAGNESIUM 1.9 mg/dL (1.80-2.40); TOTAL PROTEIN, SERUM 7.4 g/dL (6.0-8.3)
[2022-03-04 08:00] VITALS: BP 109/64
[2022-03-04] MEDS: ENOXAPARIN SODIUM 40 MG/0.4 ML SYRINGE SQ SCH (09:55)
[2022-03-04] MEDS: FAMOTIDINE 20MG VIAL IV SCH ×2 (09:55→22:02)
[2022-03-04 12:00] VITALS: BP 123/63
[2022-03-04] MEDS: ONDANSETRON 4MG INJ IV PRN ×2 (12:45→22:02)
[2022-03-04 16:00] VITALS: BP 122/68
[2022-03-04] MEDS ORDERED: [UNRECOGNIZED DRUG - OTHER] IV SCH (20:00)
[2022-03-04] MEDS ORDERED: MULTITRACE IV SCH (20:00)
[2022-03-04] MEDS ORDERED: MULTITRACE-4 ADULT 10ML VIAL 3 ML, M.V.I. IV [ADULT] 10 ML in CLINIMIX-E 5%AA /D15%W 2... IV SCH (20:00)
[2022-03-04] MEDS ORDERED: CLINIMIX E IV SCH (20:00)
[2022-03-04 23:30] VITALS: BP 118/69
[2022-03-05] MEDS: ZOSYN 3.375GM +NS 50ML IV SCH ×3 (01:14→16:41)
[2022-03-05 03:26] VITALS: BP 104/65
[2022-03-05] MEDS: INSULIN HUMULIN R 100 UNIT/ML 3ML SQ SCH ×7 (06:48→21:00)
[2022-03-05 07:25] VITALS: BP 107/70
[2022-03-05] MEDS ORDERED: INSULIN GLARGINE 100 UNITS/ML 10 ML VIAL SQ ONE (09:00)
[2022-03-05 09:12] LABS: BASOPHILS % (AUTO) 1.3 % (0.0-5.0); EOSINOPHILS % (AUTO) 2.2 % (0.0-8.0); HEMATOCRIT 36.7 % (36-48); LYMPHOCYTES % (AUTO) 21.5 % (21.0-51.0); MEAN CORPUSCULAR HEMOGLOBIN 30.1 pg (27.0-33.0); MEAN CORPUSCULAR HGB CONC 32.4 g/dL (32.0-36.0); MEAN CORPUSCULAR VOLUME 92.9 fL (79-99); MONOCYTES % (AUTO) 8.5 % (3.0-13.0); PLATELET COUNT (AUTO) 511 K/uL (130-400); RED BLOOD CELL COUNT(AUTO) 3.95 MIL/uL (4.00-5.50); RED CELL DISTRIBUTION WIDTH 13.3 % (11.0-15.5); WHITE BLOOD COUNT (AUTO) 7.7 K/uL (4.8-10.8)
[2022-03-05] MEDS: FAMOTIDINE 20MG VIAL IV SCH ×2 (09:15→21:06)
[2022-03-05] MEDS: ENOXAPARIN SODIUM 40 MG/0.4 ML SYRINGE SQ SCH (09:16)
[2022-03-05 09:27] LABS: ALBUMIN 2.7 g/dL (3.5-5.0); POTASSIUM 4.4 mmol/L (3.5-5.1); TOTAL PROTEIN, SERUM 7.9 g/dL (6.0-8.3)
[2022-03-05 12:10] VITALS: BP 114/73
[2022-03-05] MEDS ORDERED: MORPHINE 2 MG SYG IVP PRN (16:00)
[2022-03-05 16:13] VITALS: BP 115/72
[2022-03-05] MEDS: ONDANSETRON 4MG INJ IV PRN (19:21)
[2022-03-05] MEDS ORDERED: M.V.I. IV [ADULT] 10 ML in CLINIMIX-E 5%AA /D15%W 2000ML 2,000 ML IV SCH (20:00)
[2022-03-05 20:52] VITALS: BP 119/72
[2022-03-05 23:54] VITALS: BP 130/76
[2022-03-06] MEDS: ZOSYN 3.375GM +NS 50ML IV SCH ×3 (01:05→17:45)
[2022-03-06] MEDS: ONDANSETRON 4MG INJ IV PRN (01:26)
[2022-03-06 04:35] VITALS: BP 116/71
[2022-03-06 05:17] LABS: HEMATOCRIT 36.7 % (36-48); MEAN CORPUSCULAR HEMOGLOBIN 29.9 pg (27.0-33.0); MEAN CORPUSCULAR HGB CONC 32.2 g/dL (32.0-36.0); MEAN CORPUSCULAR VOLUME 93.1 fL (79-99); RED BLOOD CELL COUNT(AUTO) 3.94 MIL/uL (4.00-5.50); RED CELL DISTRIBUTION WIDTH 13.3 % (11.0-15.5)
[2022-03-06 05:44] LABS: ALBUMIN 2.6 g/dL (3.5-5.0); BILIRUBIN,DIRECT 0.1 mg/dL (0.0-0.3); CREATININE 0.8 mg/dL (0.5-1.5); CRP QUANTITATIVE 18.6 mg/L (0.00-9.0); TOTAL PROTEIN, SERUM 7.4 g/dL (6.0-8.3)
[2022-03-06] MEDS: INSULIN HUMULIN R 100 UNIT/ML 3ML SQ SCH ×7 (06:52→21:16)
[2022-03-06 07:44] VITALS: BP 104/61
[2022-03-06] MEDS ORDERED: INSULIN GLARGINE 100 UNITS/ML 10 ML VIAL SQ SCH (09:00)
[2022-03-06] MEDS: FAMOTIDINE 20MG VIAL IV SCH ×2 (09:42→21:31)
[2022-03-06] MEDS: ENOXAPARIN SODIUM 40 MG/0.4 ML SYRINGE SQ SCH (09:43)
[2022-03-06 11:01] VITALS: BP 110/60
[2022-03-06 16:11] VITALS: BP 102/66
[2022-03-06 20:09] VITALS: BP 114/67
[2022-03-06] MEDS ORDERED: M.V.I. IV [ADULT] 10 ML in CLINIMIX-E 5%AA /D15%W 2000ML 2,000 ML IV SCH (20:30)
[2022-03-07] VITALS: BP 110/69
[2022-03-07] MEDS: INSULIN HUMULIN R 100 UNIT/ML 3ML SQ SCH ×8 (01:51→20:38)
[2022-03-07] MEDS: ZOSYN 3.375GM +NS 50ML IV SCH ×3 (01:52→17:08)
[2022-03-07 04:22] VITALS: BP 109/61
[2022-03-07 06:13] LABS: HEMATOCRIT 34.6 % (36-48); MEAN CORPUSCULAR HEMOGLOBIN 29.6 pg (27.0-33.0); MEAN CORPUSCULAR HGB CONC 31.8 g/dL (32.0-36.0); MEAN CORPUSCULAR VOLUME 93.3 fL (79-99); RED BLOOD CELL COUNT(AUTO) 3.71 MIL/uL (4.00-5.50); RED CELL DISTRIBUTION WIDTH 13.2 % (11.0-15.5); WHITE BLOOD COUNT (AUTO) 6.4 K/uL (4.8-10.8)
[2022-03-07 06:27] LABS: ALBUMIN 2.6 g/dL (3.5-5.0); CREATININE 0.8 mg/dL (0.5-1.5); POTASSIUM 3.7 mmol/L (3.5-5.1); TOTAL PROTEIN, SERUM 7.4 g/dL (6.0-8.3)
[2022-03-07 07:00] VITALS: BP 116/65
[2022-03-07] MEDS: ENOXAPARIN SODIUM 40 MG/0.4 ML SYRINGE SQ SCH (09:03)
[2022-03-07] MEDS: FAMOTIDINE 20MG VIAL IV SCH ×2 (09:03→20:38)
[2022-03-07] MEDS: INSULIN GLARGINE 100 UNITS/ML 10 ML VIAL SQ SCH (09:12)
[2022-03-07 11:00] VITALS: BP 110/72
[2022-03-07 15:00] VITALS: BP 116/71
[2022-03-07 19:55] VITALS: BP 106/67
[2022-03-08 00:14] VITALS: BP 105/61
[2022-03-08] MEDS: ZOSYN 3.375GM +NS 50ML IV SCH ×2 (02:02→08:55)
[2022-03-08 04:32] VITALS: BP 109/57
[2022-03-08 05:13] LABS: HEMATOCRIT 34.9 % (36-48); MEAN CORPUSCULAR HEMOGLOBIN 30.3 pg (27.0-33.0); MEAN CORPUSCULAR VOLUME 91.8 fL (79-99); RED BLOOD CELL COUNT(AUTO) 3.8 MIL/uL (4.00-5.50); RED CELL DISTRIBUTION WIDTH 13.4 % (11.0-15.5); WHITE BLOOD COUNT (AUTO) 7.3 K/uL (4.8-10.8)
[2022-03-08 05:29] LABS: ALBUMIN 2.7 g/dL (3.5-5.0); CREATININE 0.8 mg/dL (0.5-1.5); POTASSIUM 3.5 mmol/L (3.5-5.1); TOTAL PROTEIN, SERUM 7.5 g/dL (6.0-8.3)
[2022-03-08] MEDS: INSULIN HUMULIN R 100 UNIT/ML 3ML SQ SCH ×5 (06:00→12:52)
[2022-03-08 07:05] VITALS: BP_SYST 124; BP_SYST 152; BP_DIAS 62; BP_DIAS 76
[2022-03-08] MEDS: FAMOTIDINE 20MG VIAL IV SCH (08:55)
[2022-03-08] MEDS: ENOXAPARIN SODIUM 40 MG/0.4 ML SYRINGE SQ SCH (08:56)
[2022-03-08] MEDS: INSULIN GLARGINE 100 UNITS/ML 10 ML VIAL SQ SCH (08:57)
[2022-03-08] MEDS ORDERED: ONDA-104 PO (09:59)
[2022-03-08 11:05] VITALS: BP 106/65
== END 2022-03-08 15:55 | disposition home or self-care (01) | DRG 871 ==
LOC: EDH 21:56 → EDHIP 21:57 → 3CH 02-25 04:43
PROVIDERS: ADMIT Hospitalist; ATTEND Hospitalist
DX: A41.9 Sepsis, unspecified organism (principal); K85.90 Acute pancreatitis without necrosis or infection, unspecified; E87.1 Hypo-osmolality and hyponatremia; Z20.822 Contact with and (suspected) exposure to COVID-19; E78.2 Mixed hyperlipidemia; E66.9 Obesity, unspecified; D75.839 Thrombocytosis, unspecified; E11.65 Type 2 diabetes mellitus with hyperglycemia; E87.6 Hypokalemia; J45.909 Unspecified asthma, uncomplicated; Z79.4 Long term (current) use of insulin; Z82.49 Family history of ischemic heart disease and other diseases of the circulatory system; Z90.710 Acquired absence of both cervix and uterus; Z68.27 Body mass index [BMI] 27.0-27.9, adult
CPT/HCPCS: 36415; 71045; 74176; 80048; 80053; 80061; 80076; 80305; 81001; 82040; 82948; 83036; 83605; 83690; 83735; 84100; 84132; 84145; 85025; 85027; 85610; 85651; 85730; 86140; 86316; 87040; 87635; 93005; G0378; J1650; J1815; J1885; J2270; J2405; J2543; J3475; J3480; J3490; J7030; J7120

== ENCOUNTER → 2022-06-09 | Outpatient (CLI) | payer OTHER ==
[~2022-06-09] MED LIST changes: -AMOX-426 PO; +IOHEXOL 350 MG/ML 100ML INFUS..BTL IV ONE; +ONDA-104 PO
== END | disposition home or self-care (01) ==
LOC: RAH 10:52
PROVIDERS: ATTEND Internal Medicine
DX: K85.90 Acute pancreatitis without necrosis or infection, unspecified (principal); K86.2 Cyst of pancreas
CPT/HCPCS: 74170; Q9967

== ENCOUNTER → 2022-11-13 | Outpatient (CLI) | payer MEDICARE ==
[~2022-11-13] MED LIST changes: -IOHEXOL 350 MG/ML 100ML INFUS..BTL IV ONE
[2022-11-13 11:30] LABS: ALANINE AMINOTRANSFERASE 26 U/L (12-78); ALBUMIN 3.8 g/dL (3.5-5.0); ASPARTATE AMINOTRANSFERASE 19 U/L (10-37); CARBON DIOXIDE 27 mmol/L (21-32); CHLORIDE 103 mmol/L (101-111); CREATININE 0.8 mg/dL (0.5-1.5); GLOMERULAR FILTR. RATE CALC 82 mL/min (>90); GLUCOSE,RANDOM 89 mg/dL (70-105); POTASSIUM 4.3 mmol/L (3.5-5.1); SODIUM SERUM 139 mmol/L (136-145); TOTAL PROTEIN, SERUM 8.2 g/dL (6.0-8.3); UREA NITROGEN, BLOOD 17 mg/dL (7-18)
[2022-11-13 11:42] LABS: LIPASE < 50 U/L (114-286)
== END | disposition home or self-care (01) ==
LOC: LAB 10:16
PROVIDERS: ATTEND Internal Medicine Gastroenterology
DX: K86.9 Disease of pancreas, unspecified (principal)
CPT/HCPCS: 36415; 80053; 83690

== ENCOUNTER → 2022-11-16 | Outpatient (CLI) | payer MEDICARE ==
[~2022-11-16] MED LIST changes: +IOHEXOL-350 75 ML VIAL IV ONE
== END | disposition home or self-care (01) ==
LOC: RAH 08:45
PROVIDERS: ATTEND Internal Medicine Gastroenterology
DX: K86.9 Disease of pancreas, unspecified (principal)
CPT/HCPCS: 74177; Q9967

== ENCOUNTER 2022-12-13 12:29 | Inpatient (IN) | payer OTHER, MEDICARE ==
[~2022-12-13] VITALS: Ht 152.4 cm; Wt 61.2 kg
[~2022-12-13 12:29] MED LIST changes: -IOHEXOL-350 75 ML VIAL IV ONE
[2022-12-13] MEDS ORDERED: PANTOPRAZOLE 40 MG/VIAL IVP ONE (14:00)
[2022-12-13] MEDS ORDERED: ONDANSETRON 4MG INJ IVP ONE ×3 (14:00→18:00)
[2022-12-13 14:26] LABS: BASOPHILS % (AUTO) 0.2 % (0.0-5.0); EOSINOPHILS % (AUTO) 0.1 % (0.0-8.0); HEMATOCRIT 40.3 % (36-48); LYMPHOCYTES % (AUTO) 6.5 % (21.0-51.0); MEAN CORPUSCULAR HEMOGLOBIN 29.1 pg (27.0-33.0); MEAN CORPUSCULAR HGB CONC 33.3 g/dL (32.0-36.0); MEAN CORPUSCULAR VOLUME 87.6 fL (79-99); MONOCYTES % (AUTO) 4.4 % (3.0-13.0); NEUTROPHILS % (AUTO) 88.2 % (40.0-77.0); PLATELET COUNT (AUTO) 492 K/uL (130-400); RED CELL DISTRIBUTION WIDTH 12.6 % (11.0-15.5); WHITE BLOOD COUNT (AUTO) 22.3 K/uL (4.8-10.8)
[2022-12-13 14:33] LABS: CARBON DIOXIDE 24 mmol/L (21-32); CHLORIDE 95 mmol/L (101-111); CREATININE 0.7 mg/dL (0.5-1.5); GLOMERULAR FILTR. RATE CALC 96 mL/min (>90); GLUCOSE,RANDOM 93 mg/dL (70-105); POTASSIUM 3.5 mmol/L (3.5-5.1); SODIUM SERUM 131 mmol/L (136-145); UREA NITROGEN, BLOOD 14 mg/dL (7-18)
[2022-12-13 14:37] LABS: ALANINE AMINOTRANSFERASE 23 U/L (12-78); ALBUMIN 2.7 g/dL (3.5-5.0); ASPARTATE AMINOTRANSFERASE 23 U/L (10-37); TOTAL PROTEIN, SERUM 7.9 g/dL (6.0-8.3)
[2022-12-13 14:39] LABS: LIPASE < 50 U/L (114-286)
[2022-12-13] MEDS ORDERED: IOHEXOL 350 MG/ML 100ML INFUS..BTL IV ONE (15:05)
[2022-12-13] MEDS ORDERED: MORPHINE 4 MG SYG IVP ONE (16:00)
[2022-12-13 16:13] LABS: APPEARANCE,URINE CLEAR (CLEAR); BILIRUBIN,URINE NEGATIVE (NEGATIVE); COLOR,URINE LIGHT-YELLOW (YELLOW); GLUCOSE, URINE (UA) >=1000 mg/dL (NEGATIVE); KETONES,URINE 100 mg/dL (NEGATIVE); LEUKOCYTE ESTERASE ,URINE NEGATIVE Leu/uL (NEGATIVE); NITRATE,URINE NEGATIVE (NEGATIVE); OCCULT BLOOD,URINE NEGATIVE (NEGATIVE); PROTEIN,URINE 50 mg/dL (NEGATIVE); UROBILINOGEN,URINE 0.2 mg/dL (0.2-1.0)
[2022-12-13] MEDS: LACTATED RINGERS 1000ML IV SCH (16:14)
[2022-12-13 16:32] LABS: BACTERIA,URINE FEW /HPF (None Seen); MUCUS,URINE RARE LPF (None Seen); SQUAMOUS EPITHELIAL CELL,UR FEW /HPF (0-2)
[2022-12-13] MEDS ORDERED: ZOSYN 3.375GM +NS 50ML IVPB ONE (17:00)
[2022-12-13] MEDS ORDERED: HYDROMORPHONE 0.5 MG SYG (0.5MG/0.5ML) ONE (17:57)
[2022-12-13] MEDS ORDERED: VANCOMYCIN KIT 1 GM/250 ML IV.KIT IV ONE (18:00)
[2022-12-13] MEDS ORDERED: CEFEPIME HCL 2 GM VIAL IVPB SCH (18:00)
[2022-12-13] MEDS ORDERED: HYDROMORPHONE 0.5 MG SYG (0.5MG/0.5ML) IVP ONE (18:00)
[2022-12-13] MEDS ORDERED: ACETAMINOPHEN 325 MG TAB PO PRN ×2 (18:30)
[2022-12-13] MEDS ORDERED: CEFEPIME HCL 1 GM VIAL IVPB SCH (18:30)
[2022-12-13] MEDS ORDERED: MORPHINE 4 MG SYG IV PRN (18:30)
[2022-12-13] MEDS ORDERED: VANCOMYCIN PROTOCOL PER PHARMACY IV PRN (18:30)
[2022-12-13] MEDS ORDERED: ONDANSETRON 4MG INJ IV PRN (18:30)
[2022-12-13] MEDS: LACTATED RINGERS 1000ML 1,000 ML IV SCH ×2 (19:23→22:12)
[2022-12-13] MEDS ORDERED: DiphenhydrAMINE HCL 50 MG/ML VIAL IV ONE (19:30)
[2022-12-13] MEDS ORDERED: FAMOTIDINE 20MG VIAL IV ONE (19:30)
[2022-12-13 22:13] VITALS: BP 98/55
[2022-12-13 23:50] VITALS: BP 89/47
[2022-12-13 23:55] VITALS: BP 88/48
[2022-12-14] VITALS (45 sets, daily range): BP systolic 80–118; BP diastolic 46–92
[2022-12-14] MEDS ORDERED: DEXTROSE 50%-WATER 50 ML DISP.SYRIN IV ONE (00:22)
[2022-12-14] MEDS ORDERED: MIDODRINE HCL 5 MG TABLET PO SCH (00:30)
[2022-12-14] MEDS ORDERED: LACTATED RINGERS 1000ML IV ONE (00:30)
[2022-12-14] MEDS ORDERED: NOREPINEPHRIN 4MG/NS 250ML 250 ML IV SCH (01:30)
[2022-12-14 04:47] LABS: BASOPHILS % (AUTO) 0.2 % (0.0-5.0); EOSINOPHILS % (AUTO) 0.3 % (0.0-8.0); HEMATOCRIT 33.3 % (36-48); LYMPHOCYTES % (AUTO) 4.2 % (21.0-51.0); MEAN CORPUSCULAR HEMOGLOBIN 29.6 pg (27.0-33.0); MEAN CORPUSCULAR HGB CONC 32.7 g/dL (32.0-36.0); MEAN CORPUSCULAR VOLUME 90.5 fL (79-99); MONOCYTES % (AUTO) 3.7 % (3.0-13.0); PLATELET COUNT (AUTO) 360 K/uL (130-400); RED BLOOD CELL COUNT(AUTO) 3.68 MIL/uL (4.00-5.50); RED CELL DISTRIBUTION WIDTH 12.8 % (11.0-15.5)
[2022-12-14 05:03] LABS: INR 1.1 (0.85-1.15); PROTHROMBIN TIME 11.9 SEC (9.6-11.6)
[2022-12-14 05:07] LABS: CREATININE 0.6 mg/dL (0.5-1.5); MAGNESIUM 1.8 mg/dL (1.80-2.40); PHOSPHORUS 4.4 mg/dL (2.5-4.9)
[2022-12-14] MEDS ORDERED: VANCOMYCIN 750MG 750 MG in 0.9% NACL 250ML 250 ML IVPB SCH (06:00)
[2022-12-14] MEDS: CEFEPIME HCL 1 GM VIAL IVPB SCH ×2 (06:25→17:41)
[2022-12-14] MEDS ORDERED: PROPOFOL 10 MG/ML 20ML VIAL IV ONE ×2 (06:58→07:05)
[2022-12-14] MEDS ORDERED: LIDOCAINE PF 100MG/5ML (2%) SYRINGE 5ML ONE (06:58)
[2022-12-14] MEDS ORDERED: DEXTROSE 50%-WATER 50 ML DISP.SYRIN IV PRN (08:00)
[2022-12-14] MEDS ORDERED: MAGNESIUM 2GM PREMIX 50ML 50 ML IV PRN (08:00)
[2022-12-14] MEDS ORDERED: GLUCAGON 1MG KIT 1 MG ML IM PRN (08:00)
[2022-12-14] MEDS ORDERED: POTASSIUM CHLORIDE 10% ELIXIR 20 MEQ/15 ML UDCUP PO PRN (08:00)
[2022-12-14] MEDS ORDERED: POTASSIUM CHLORIDE 20MEQ/100ML 100 ML IV PRN (08:00)
[2022-12-14] MEDS ORDERED: MAGNESIUM 2GM PREMIX 50ML 50 ML IV ONE (08:34)
[2022-12-14] MEDS: MIDODRINE HCL 5 MG TABLET PO SCH ×3 (08:36→20:29)
[2022-12-14] MEDS: FAMOTIDINE 20MG VIAL IV SCH (08:36)
[2022-12-14] MEDS: ENOXAPARIN SODIUM 40 MG/0.4 ML SYRINGE SQ SCH (08:37)
[2022-12-14] MEDS: MORPHINE 2 MG SYG IV PRN ×2 (08:54→18:25)
[2022-12-14] MEDS: MAGNESIUM 2GM PREMIX 50ML 50 ML IV PRN (09:01)
[2022-12-14] MEDS: KCL 20 MEQ ERTAB PO PRN ×3 (09:03→17:42)
[2022-12-14] MEDS: METOCLOPRAMIDE 10 MG/2 ML VIAL IVP SCH ×2 (09:48→20:29)
[2022-12-14] MEDS ORDERED: 0.9%NACL 1000ML 1,000 ML IV ONE (11:05)
[2022-12-14] MEDS: GUAIFENESIN SUGAR-FREE 100 MG/5 ML UDCUP PO PRN ×2 (12:39→20:34)
[2022-12-14] MEDS: METRONIDAZOLE 500MG/100ML BAG 100 ML IVPB SCH ×2 (13:08→20:29)
[2022-12-14] MEDS: LACTATED RINGERS 1000ML IV SCH (17:40)
[2022-12-14] MEDS: BENZONATATE 100 MG CAPSULE PO PRN (20:34)
[2022-12-15] VITALS (13 sets, daily range): BP systolic 100–132; BP diastolic 38–76
[2022-12-15] MEDS: LACTATED RINGERS 1000ML 1,000 ML IV SCH (03:43)
[2022-12-15] MEDS: CEFEPIME HCL 1 GM VIAL IVPB SCH ×2 (05:21→20:22)
[2022-12-15 05:48] LABS: BASOPHILS % (AUTO) 0.3 % (0.0-5.0); EOSINOPHILS % (AUTO) 0.1 % (0.0-8.0); HEMATOCRIT 29.7 % (36-48); LYMPHOCYTES % (AUTO) 7.5 % (21.0-51.0); MEAN CORPUSCULAR HEMOGLOBIN 29.2 pg (27.0-33.0); MEAN CORPUSCULAR HGB CONC 32.7 g/dL (32.0-36.0); MEAN CORPUSCULAR VOLUME 89.5 fL (79-99); MONOCYTES % (AUTO) 5.6 % (3.0-13.0); NEUTROPHILS % (AUTO) 85.5 % (40.0-77.0); PLATELET COUNT (AUTO) 346 K/uL (130-400); RED BLOOD CELL COUNT(AUTO) 3.32 MIL/uL (4.00-5.50); WHITE BLOOD COUNT (AUTO) 15.9 K/uL (4.8-10.8)
[2022-12-15 06:10] LABS: ALANINE AMINOTRANSFERASE 23 U/L (12-78); ALBUMIN 1.7 g/dL (3.5-5.0); ASPARTATE AMINOTRANSFERASE 22 U/L (10-37); CARBON DIOXIDE 20 mmol/L (21-32); CHLORIDE 96 mmol/L (101-111); CREATININE 0.6 mg/dL (0.5-1.5); GLOMERULAR FILTR. RATE CALC 100 mL/min (>90); GLUCOSE,RANDOM 119 mg/dL (70-105); POTASSIUM 3.2 mmol/L (3.5-5.1); SODIUM SERUM 130 mmol/L (136-145); TOTAL PROTEIN, SERUM 5.7 g/dL (6.0-8.3); UREA NITROGEN, BLOOD 6 mg/dL (7-18)
[2022-12-15 06:20] LABS: LIPASE < 50 U/L (114-286)
[2022-12-15] MEDS: METRONIDAZOLE 500MG/100ML BAG 100 ML IVPB SCH ×3 (06:23→22:05)
[2022-12-15] MEDS: ENOXAPARIN SODIUM 40 MG/0.4 ML SYRINGE SQ SCH (08:48)
[2022-12-15] MEDS: KCL 20 MEQ ERTAB PO PRN ×3 (08:49→13:11)
[2022-12-15] MEDS: METOCLOPRAMIDE 10 MG/2 ML VIAL IVP SCH ×2 (08:49→20:22)
[2022-12-15] MEDS: FAMOTIDINE 20MG VIAL IV SCH (08:49)
[2022-12-15] MEDS: MIDODRINE HCL 5 MG TABLET PO SCH ×2 (08:49→13:11)
[2022-12-15] MEDS: MAGNESIUM 2GM PREMIX 50ML 50 ML IV PRN (08:52)
[2022-12-15] MEDS: LACTATED RINGERS 1000ML IV SCH (13:09)
[2022-12-15 15:57] LABS: MAGNESIUM 2.3 mg/dL (1.80-2.40); POTASSIUM 3.8 mmol/L (3.5-5.1)
[2022-12-15] MEDS: GUAIFENESIN SUGAR-FREE 100 MG/5 ML UDCUP PO PRN (20:57)
[2022-12-15] MEDS: BENZONATATE 100 MG CAPSULE PO PRN (23:22)
[2022-12-16 07:08] VITALS: BP 118/74
[2022-12-16] MEDS: CEFEPIME HCL 1 GM VIAL IVPB SCH ×2 (08:35→20:10)
[2022-12-16] MEDS: BENZONATATE 100 MG CAPSULE PO PRN (08:35)
[2022-12-16] MEDS: FAMOTIDINE 20MG VIAL IV SCH (08:35)
[2022-12-16] MEDS: METRONIDAZOLE 500MG/100ML BAG 100 ML IVPB SCH ×3 (08:36→22:10)
[2022-12-16] MEDS: MIDODRINE HCL 5 MG TABLET PO SCH ×4 (08:36→20:10)
[2022-12-16] MEDS: ENOXAPARIN SODIUM 40 MG/0.4 ML SYRINGE SQ SCH (08:36)
[2022-12-16] MEDS: METOCLOPRAMIDE 10 MG/2 ML VIAL IVP SCH ×2 (08:36→20:10)
[2022-12-16 11:10] VITALS: BP 112/72
[2022-12-16] MEDS: LACTATED RINGERS 1000ML IV SCH ×2 (16:00→22:25)
[2022-12-16 16:06] VITALS: BP 123/88
[2022-12-16 19:54] VITALS: BP 115/60
[2022-12-16] MEDS: GUAIFENESIN SUGAR-FREE 100 MG/5 ML UDCUP PO PRN (22:20)
[2022-12-16 23:08] VITALS: BP 118/70
[2022-12-17 04:07] VITALS: BP 117/69
[2022-12-17] MEDS: METRONIDAZOLE 500MG/100ML BAG 100 ML IVPB SCH ×3 (05:36→21:14)
[2022-12-17 07:08] VITALS: BP 116/55
[2022-12-17 08:28] LABS: HEMATOCRIT 35.9 % (36-48); MEAN CORPUSCULAR HEMOGLOBIN 28.8 pg (27.0-33.0); MEAN CORPUSCULAR HGB CONC 33.1 g/dL (32.0-36.0); MEAN CORPUSCULAR VOLUME 86.9 fL (79-99); RED BLOOD CELL COUNT(AUTO) 4.13 MIL/uL (4.00-5.50); RED CELL DISTRIBUTION WIDTH 12.8 % (11.0-15.5); WHITE BLOOD COUNT (AUTO) 9.2 K/uL (4.8-10.8)
[2022-12-17 09:00] LABS: ALBUMIN 2.1 g/dL (3.5-5.0); CREATININE 0.6 mg/dL (0.5-1.5); POTASSIUM 3.8 mmol/L (3.5-5.1); TOTAL PROTEIN, SERUM 6.7 g/dL (6.0-8.3)
[2022-12-17] MEDS: FAMOTIDINE 20MG VIAL IV SCH (10:01)
[2022-12-17] MEDS: METOCLOPRAMIDE 10 MG/2 ML VIAL IVP SCH ×2 (10:01→20:26)
[2022-12-17] MEDS: ENOXAPARIN SODIUM 40 MG/0.4 ML SYRINGE SQ SCH (10:04)
[2022-12-17] MEDS: MIDODRINE HCL 5 MG TABLET PO SCH ×3 (10:05→20:26)
[2022-12-17] MEDS: BENZONATATE 100 MG CAPSULE PO PRN (10:10)
[2022-12-17] MEDS: CEFEPIME HCL 1 GM VIAL IVPB SCH ×2 (10:10→20:26)
[2022-12-17 11:08] VITALS: BP 114/54
[2022-12-17 16:06] VITALS: BP 117/66
[2022-12-17 19:00] VITALS: BP 114/68
[2022-12-18 00:03] VITALS: BP 114/65
[2022-12-18 04:30] VITALS: BP 128/75
[2022-12-18 05:03] LABS: BASOPHILS % (AUTO) 0.4 % (0.0-5.0); EOSINOPHILS % (AUTO) 1.7 % (0.0-8.0); LYMPHOCYTES % (AUTO) 22.5 % (21.0-51.0); MEAN CORPUSCULAR HEMOGLOBIN 28.8 pg (27.0-33.0); MEAN CORPUSCULAR HGB CONC 32.8 g/dL (32.0-36.0); MEAN CORPUSCULAR VOLUME 87.8 fL (79-99); NEUTROPHILS % (AUTO) 64.7 % (40.0-77.0); PLATELET COUNT (AUTO) 598 K/uL (130-400); RED CELL DISTRIBUTION WIDTH 12.8 % (11.0-15.5); WHITE BLOOD COUNT (AUTO) 9.1 K/uL (4.8-10.8)
[2022-12-18 05:25] LABS: ALBUMIN 2.1 g/dL (3.5-5.0); CREATININE 0.7 mg/dL (0.5-1.5); MAGNESIUM 1.9 mg/dL (1.80-2.40); POTASSIUM 3.8 mmol/L (3.5-5.1); TOTAL PROTEIN, SERUM 6.4 g/dL (6.0-8.3)
[2022-12-18] MEDS: METRONIDAZOLE 500MG/100ML BAG 100 ML IVPB SCH (05:31)
[2022-12-18] MEDS: CEFEPIME HCL 1 GM VIAL IVPB SCH (07:41)
[2022-12-18] MEDS: MIDODRINE HCL 5 MG TABLET PO SCH (07:43)
[2022-12-18] MEDS: FAMOTIDINE 20MG VIAL IV SCH (07:44)
[2022-12-18] MEDS: METOCLOPRAMIDE 10 MG/2 ML VIAL IVP SCH (07:44)
[2022-12-18] MEDS: ENOXAPARIN SODIUM 40 MG/0.4 ML SYRINGE SQ SCH (07:46)
[2022-12-18 08:09] VITALS: BP 128/67
[2022-12-18 11:41] VITALS: BP 112/68
[2022-12-18] MEDS ORDERED: CIPR500T10 PO ×2 (12:39→12:42)
[2022-12-18] MEDS ORDERED: MIDO5TAB4 PO (12:39)
[2022-12-18] MEDS ORDERED: METO10TA3 PO (12:39)
[2022-12-18] MEDS: MAGNESIUM 2GM PREMIX 50ML 50 ML IV PRN (12:52)
== END 2022-12-18 14:50 | disposition home or self-care (01) | DRG 871 ==
LOC: EDH 12:29 → EDHIP 18:28 → 4DH 21:34 → 2CH 12-14 02:40 → 2DH 12-15 15:33 → 4BH 12-17 20:05
PROVIDERS: ADMIT Hospitalist; ATTEND Hospitalist
PROC: 0DJ08ZZ Inspection of Upper Intestinal Tract, Via Natural or Artificial Opening Endoscopic (ICD-10-PCS; principal; 2022-12-14)
DX: A41.9 Sepsis, unspecified organism (principal); K85.92 Acute pancreatitis with infected necrosis, unspecified; R65.21 Severe sepsis with septic shock; K86.3 Pseudocyst of pancreas; Z20.822 Contact with and (suspected) exposure to COVID-19; D72.829 Elevated white blood cell count, unspecified; E86.0 Dehydration; K76.0 Fatty (change of) liver, not elsewhere classified; E11.65 Type 2 diabetes mellitus with hyperglycemia; E66.9 Obesity, unspecified; E78.00 Pure hypercholesterolemia, unspecified; E87.6 Hypokalemia; D72.823 Leukemoid reaction; F03.90 Unspecified dementia, unspecified severity, without behavioral disturbance, psychotic disturbance, mood disturbance, and anxiety; J45.909 Unspecified asthma, uncomplicated; K21.9 Gastro-esophageal reflux disease without esophagitis; Z51.5 Encounter for palliative care; Z82.49 Family history of ischemic heart disease and other diseases of the circulatory system; Z90.710 Acquired absence of both cervix and uterus; Z79.899 Other long term (current) drug therapy; Z68.26 Body mass index [BMI] 26.0-26.9, adult
CPT/HCPCS: 36415; 43235; 43240; 74177; 77002; 80048; 80053; 80202; 81001; 82947; 82948; 83605; 83690; 83735; 84100; 84132; 84145; 84484; 85025; 85027; 85610; 85730; 86850; 86900; 86901; 87040; 87635; 87804; 93005; C9113; G0378; G9654; J0692; J1170; J1200; J1650; J2001; J2270; J2405; J2704; J2765; J3370; J3475; J3490; J7030; J7050; J7070; J7120; Q9967

== ENCOUNTER → 2023-01-25 | Outpatient (CLI) | payer OTHER, MEDICARE ==
[~2023-01-25] MED LIST changes: +CIPR500T10 PO; +IOHEXOL 350 MG/ML 100ML INFUS..BTL IV ONE; +METO10TA3 PO; +MIDO5TAB4 PO; -ONDA-104 PO
== END | disposition home or self-care (01) ==
LOC: RAH 10:37
PROVIDERS: ATTEND Internal Medicine Gastroenterology
DX: R93.3 Abnormal findings on diagnostic imaging of other parts of digestive tract (principal); Z90.49 Acquired absence of other specified parts of digestive tract; Z98.890 Other specified postprocedural states
CPT/HCPCS: 74178; Q9967

== ENCOUNTER → 2023-07-18 | Outpatient (CLI) | payer OTHER, MEDICARE ==
[~2023-07-18] MED LIST changes: -IOHEXOL 350 MG/ML 100ML INFUS..BTL IV ONE; +IOHEXOL-350 75 ML VIAL IV ONE
== END | disposition home or self-care (01) ==
LOC: RAH 10:35
PROVIDERS: ATTEND Internal Medicine Gastroenterology
DX: K86.89 Other specified diseases of pancreas (principal); R93.3 Abnormal findings on diagnostic imaging of other parts of digestive tract; M47.815 Spondylosis without myelopathy or radiculopathy, thoracolumbar region; I70.90 Unspecified atherosclerosis; Z90.49 Acquired absence of other specified parts of digestive tract
CPT/HCPCS: 74170; Q9967

== ENCOUNTER 2024-08-30 21:31 | Emergency (ER) | payer OTHER, MEDICARE ==
[~2024-08-30] VITALS: Ht 152.4 cm; Wt 63.5 kg
[~2024-08-30 21:31] MED LIST changes: -IOHEXOL-350 75 ML VIAL IV ONE
--- NOTE | 2024-08-30 21:35 | NUR ---
UA CUP PROVIDED
[2024-08-30 22:12] LABS: BASOPHILS # (AUTO) 0.07 K/uL (0.00-0.20); BASOPHILS % (AUTO) 0.8 % (0.0-5.0); EOSINOPHILS # (AUTO) 0.21 K/uL (0.00-0.70); EOSINOPHILS % (AUTO) 2.4 % (0.0-8.0); HEMATOCRIT 41.3 % (36-48); IMMATURE GRANULOCYTE ABSOLUTE 0.03 K/uL (0-1); LYMPHOCYTES # (AUTO) 2.9 K/uL (1.0-4.8); LYMPHOCYTES % (AUTO) 33.4 % (21.0-51.0); MEAN CORPUSCULAR HEMOGLOBIN 31.5 pg (27.0-33.0); MEAN CORPUSCULAR HGB CONC 32.9 g/dL (32.0-36.0); MEAN CORPUSCULAR VOLUME 95.6 fL (79-99); MONOCYTES # (AUTO) 0.6 K/uL (0.1-1.0); MONOCYTES % (AUTO) 6.9 % (3.0-13.0); NEUTROPHILS # (AUTO) 4.9 K/uL (1.8-7.7); NEUTROPHILS % (AUTO) 56.2 % (40.0-77.0); PLATELET COUNT (AUTO) 288 K/uL (130-400); RED BLOOD CELL COUNT(AUTO) 4.32 MIL/uL (4.00-5.50); RED CELL DISTRIBUTION WIDTH 13.3 % (11.0-15.5); WHITE BLOOD COUNT (AUTO) 8.7 K/uL (4.8-10.8)
[2024-08-30 22:24] LABS: CREATININE 1.2 mg/dL (0.5-1.0); POTASSIUM 3.8 mmol/L (3.5-5.1)
[2024-08-30 22:29] LABS: ALBUMIN 3.8 g/dL (3.5-5.0); BILIRUBIN,DIRECT 0.1 mg/dL (0.0-0.3); BILIRUBIN,TOTAL 0.2 mg/dL (0.2-1.0); TOTAL PROTEIN, SERUM 7.7 g/dL (6.0-8.3)
[2024-08-30] MEDS: ondanSETRON 4MG INJ IVP ONE (22:31)
[2024-08-30] MEDS: morPHINE 2 MG SYG IVP ONE (22:31)
[2024-08-30] MEDS ORDERED: IOHEXOL-350 75 ML VIAL IV ONE (22:50)
--- NOTE | 2024-08-30 23:37 | HMCIMG ---
CT ABDOMEN/PELVIS W/CONTRAST HISTORY: Mid epigastric pain COMPARISON: 07/18/2023 TECHNIQUE: Multiple sequential axial images of the abdomen and pelvis were obtained from the dome of the diaphragm through symphysis pubis. Patient was given 75 cc of Omnipaque through intravenous route. Oral contrast was not given. FINDINGS: No pleural effusion is seen bilaterally. There is no evidence of parenchymal disease or pulmonary nodule of the visualized lower lungs. Degenerative changes of the thoracolumbar spine are present. The heart is not enlarged. Liver measures 16 cm. Postcholecystectomy changes are seen. Pancreatic head is enlarged measuring 3.6 cm. There is atrophic pancreatic body and tail. Gastric distention is seen. The liver, spleen, adrenal glands are unremarkable. There is no evidence of hydronephrosis bilaterally. No evidence of renal stone is seen. Fecal material is seen in the colon. There are normal size retroperitoneal and mesenteric lymph nodes. No ascites is seen. Atherosclerotic changes are present. Pelvic sidewalls are symmetric bilaterally. Bladder is well distended without wall thickening. IMPRESSION: 1. Pancreatic head is enlarged measuring 3.6 cm. There is atrophic pancreatic body and tail. Gastric distention is seen. No ascites is seen. CT was performed with one or more following dose reduction techniques: automated exposure control, adjustment of the mA and kv according to patient's size, or use of a iterative reconstruction technique.
--- NOTE | 2024-08-30 23:47 | ERN ---
General Chief Complaint: Abdominal Pain Stated Complaint: ABD PAIN Time Seen by MD: 21:36 Time Seen by Midlevel: 21:36 Source: patient History of Present Illness Allergies: Coded Allergies: vancomycin (Unverified Allergy, Unknown, 12/13/22) Home Meds Active Scripts Ciprofloxacin HCl (Ciprofloxacin HCl) 500 Mg Tablet, 500 MG PO BID, #6 TAB 0 Refills Prov:PATY GRIERCollette Murdock [facility] 12/18/22 Metoclopramide HCl (Metoclopramide HCl) 10 Mg Tablet, 10 MG PO BID, #30 TAB 0 Refills Prov:JONEL GRIERTALISHA Murdock [facility] 12/18/22 Midodrine HCl (Midodrine HCl) 5 Mg Tablet, 5 MG PO TID for 14 Days, #42 TAB 0 Refills Prov:NINI GRIER Collette [facility] 12/18/22 Past Medical History Past Medical History: Diabetes-Type II, High Cholesterol, Liver Disease, Pancreatitis Medical History Other: PANCREATITIS Past Surgical History: Appendectomy, Hysterectomy, Cholecystectomy, Other Surgical History Other: HYSTERECTOMY Social History Social History: Negative, Lives with family, Other Female( History) History: Not Applicable Results Laboratory and Microbiology Lab and Micro Result Laboratory Tests Test 08/30/24 22:00 White Blood Count 8.7 K/uL (4.8-10.8) Red Blood Count 4.32 MIL/uL (4.00-5.50) Hemoglobin 13.6 g/dL (12.0-16.0) Hematocrit 41.3 % (36-48) Mean Corpuscular Volume 95.6 fL (79-99) Mean Corpuscular Hemoglobin 31.5 pg (27.0-33.0) Mean Corpuscular Hemoglobin Concent 32.9 g/dL (32.0-36.0) Red Cell Distribution Width 13.3 % (11.0-15.5) Platelet Count 288 K/uL (130-400) Mean Platelet Volume 9.6 fL (7.5-10.5) Immature Granulocyte % (Auto) 0.3 % (0-1) Neutrophils (%) (Auto) 56.2 % (40.0-77.0) Lymphocytes (%) (Auto) 33.4 % (21.0-51.0) Monocytes (%) (Auto) 6.9 % (3.0-13.0) Eosinophils (%) (Auto) 2.4 % (0.0-8.0) Basophils (%) (Auto) 0.8 % (0.0-5.0) Neutrophils # (Auto) 4.9 K/uL (1.8-7.7) Lymphocytes # (Auto) 2.9 K/uL (1.0-4.8) Monocytes # (Auto) 0.6 K/uL (0.1-1.0) Eosinophils # (Auto) 0.21 K/uL (0.00-0.70) Basophils # (Auto) 0.07 K/uL (0.00-0.20) Absolute Immature Granulocyte (auto 0.03 K/uL (0-1) Nucleated Red Blood Cells 0.0 % (0.0-0.19) Sodium Level 140 mmol/L (136-145) Potassium Level 3.8 mmol/L (3.5-5.1) Chloride Level 103 mmol/L (101-111) Carbon Dioxide Level 29 mmol/L (21-32) Blood Urea Nitrogen 24 mg/dL (7-18) H Creatinine 1.2 mg/dL (0.5-1.0) H Glomerular Filtration Rate Calc 50 mL/min (>90) Random Glucose 174 mg/dL (70-105) H Total Calcium 9.2 mg/dL (8.5-10.1) Total Bilirubin 0.2 mg/dL (0.2-1.0) Direct Bilirubin 0.1 mg/dL (0.0-0.3) Aspartate Amino Transf (AST/SGOT) 9 U/L (10-37) L Alanine Aminotransferase (ALT/SGPT) 19 U/L (12-78) Alkaline Phosphatase 92 U/L (50-136) Total Protein 7.7 g/dL (6.0-8.3) Albumin 3.8 g/dL (3.5-5.0) Lipase 28 U/L (16-77) ED Course Orders Procedure Category Date Status Time Cbc With Differential LAB 08/30/24 Complete 21:51 Basic Metabolic Panel LAB 08/30/24 Complete 21:51 Hepatic Function Panel LAB 08/30/24 Complete 21:51 Lipase LAB 08/30/24 Complete 21:51 Morphine 2mg Syg PHA 08/30/24 Complete (Morphine 2mg Syg) 22:00 Ondansetron 4mg Inj PHA 08/30/24 Complete (Zofran 4mg Inj) 22:00 Ct Abdomen/Pelvis CT 08/30/24 Resulted W/Contrast 22:38 Iohexol (Omnipaque) PHA 08/30/24 Complete 22:50 Current Medications Medications (Trade) Dose Ordered Sig/Ade Route PRN Reason Start Time Stop Time Status Last Admin Dose Admin Iohexol (Omnipaque) 75 ml STK-MED ONCE IV 08/30/24 22:50 08/30/24 22:50 DC Morphine Sulfate (morPHINE 2MG SYG) 2 mg ONCE ONCE IVP 08/30/24 22:00 08/30/24 22:01 DC 08/30/24 22:31 Ondansetron HCl (zoFRAN 4MG INJ) 4 mg ONCE ONCE IVP 08/30/24 22:00 08/30/24 22:01 DC 08/30/24 22:31 Vital Signs Date Time Temp Pulse Resp B/P (MAP) Pulse Ox O2 Delivery O2 Flow Rate FiO2 08/30/24 21:32 98.1 70 16 147/62 99 Room Air DX & DISP Disposition: Discharge Departure Impression: Primary Impression: Midepigastric pain Condition: Stable Additional Instructions: Your blood work today is unremarkable. Your lipase is normal. There is no evidence of pancreatitis. Your CT scan does not show any acute findings. Please follow up with your primary care doctor for further evaluation. Referrals: MOLLY NEVAREZ MD (PCP) Time of Disposition: 23:46 I have reviewed the case, and I agree with, Diagnosis and Plan I performed the substantive portion of the visit. I have reviewed and personally made and approve the management plan that is documented in the note by myself or the ANGELITO. I acknowledge for responsibility for the patient's management plan. CHIARA FISHER Aug 30, 2024 23:47
[2024-08-31] MEDS: morPHINE 2 MG SYG IVP ONE (00:12)
[2024-08-31] MEDS: ketOROlac 15MG/ML VIAL (15MG/ML) IV ONE (00:12)
[2024-08-31 00:17] VITALS: BP 139/65; PULSE 72; RESP 17; TEMP 98.3; O2SAT 98
[2024-08-31] MEDS ORDERED: morPHINE 2 MG SYG IVP ONE (00:30)
== END 2024-08-31 00:20 | disposition home or self-care (01) ==
LOC: EDH 21:31
DX: R10.13 Epigastric pain (principal); E11.9 Type 2 diabetes mellitus without complications; E78.00 Pure hypercholesterolemia, unspecified; Z88.1 Allergy status to other antibiotic agents; Z90.49 Acquired absence of other specified parts of digestive tract; Z90.710 Acquired absence of both cervix and uterus
CPT/HCPCS: 99285; 74177; 96374; 96375 ×2; 80076; 80048; 83690; 85025; 36415; 96376; J2270 ×2; J2405; Q9967; J1885